=== PATIENT | female | born 1970 ===

== ENCOUNTER 2022-04-02 02:15 | Emergency (ER) | payer OTHER ==
[~2022-04-02] VITALS: Ht 157.5 cm; Wt 61.2 kg
[~2022-04-02 02:15] MED LIST: PERCOCET 5/3251 TAB PO; ZOFRAN4 MG PO
[2022-04-02] MEDS ORDERED: LOSARTAN POTAS100 MG PO (03:52)
[2022-04-02] MEDS ORDERED: TOPROL XL50 MG PO (03:52)
[2022-04-02] MEDS ORDERED: LIPITOR20 MG PO (03:53)
[2022-04-02] MEDS ORDERED: NORFLEX100MG PO (07:13)
[2022-04-02] MEDS ORDERED: RELAFEN DS1000 MG PO (07:13)
[2022-04-02] MEDS ORDERED: CEPHALEXIN500 MG PO (07:13)
== END 2022-04-02 07:28 | disposition home or self-care (01) ==
LOC: ER 02:15
DX: N39.0 Urinary tract infection, site not specified (principal); I10 Essential (primary) hypertension; M54.9 Dorsalgia, unspecified; R30.0 Dysuria